=== PATIENT | male | born 1955 | race Caucasian/White ===

== ENCOUNTER → 2016-02-26 | Outpatient (REF) | payer BC ==
[2016-02-26 14:24] LABS: FERRITIN 290 NG/ML (26-388); PERCENT SATURATION 27.6 % (19.7-37.4); TOTAL IRON BINDING CAPACITY 387 UG/DL (250-450)
== END ==
LOC: M LAB REF 13:19
DX: R74.8 Abnormal levels of other serum enzymes (principal); F10.10 Alcohol abuse, uncomplicated

== ENCOUNTER → 2017-03-03 | Outpatient (REF) | payer BC ==
[2017-03-05 00:06] LABS: TESTOSTERONE FREE (DIRECT) 10.5 pg/mL (6.6-18.1)
== END ==
LOC: M LAB REF 12:05
DX: F52.21 Male erectile disorder (principal)
CPT/HCPCS: 84403

== ENCOUNTER → 2017-10-24 | Outpatient (CLI) | payer BC ==
[2017-10-24 12:37] LABS: ALBUMIN 4.2 GM/DL (3.2-5.2); ANION GAP 9 MEQ/L (8-16); BLOOD UREA NITROGEN 14 MG/DL (7-18); CALCIUM LEVEL 9.6 MG/DL (8.8-10.2); CARBON DIOXIDE LEVEL 26 MEQ/L (21-32); CHLORIDE LEVEL 106 MEQ/L (98-107); CREATININE FOR GFR 1.21 MG/DL (0.70-1.30); GLOMERULAR FILTRATION RATE > 60.0 (>49); GLUCOSE, FASTING 109 MG/DL (70-100); PHOSPHORUS LEVEL 3.2 MG/DL (2.5-4.9); POTASSIUM SERUM 4.3 MEQ/L (3.5-5.1); SODIUM LEVEL 141 MEQ/L (136-145); URIC ACID 7.6 MG/DL (3.5-7.2)
== END ==
LOC: M WUC 09:35
DX: M79.672 Pain in left foot (principal); M19.072 Primary osteoarthritis, left ankle and foot
CPT/HCPCS: 84550

== ENCOUNTER → 2018-03-05 | Outpatient (REF) | payer BC | LOC: M LAB REF 17:30 | PROVIDERS: ATTEND Nurse Practitioner Family | DX: E29.1 Testicular hypofunction (principal) ==

== ENCOUNTER → 2018-09-20 | Outpatient (REF) | payer BC ==
[~2018-09-20] MED LIST: LOSA50TA88; NAPR-837 PO
[2018-09-21 14:17] LABS: TESTOSTERONE FREE (DIRECT) 9.1 pg/mL (6.6-18.1)
== END ==
LOC: M LAB REF 12:36
PROVIDERS: ATTEND Nurse Practitioner Adult Health
DX: E29.1 Testicular hypofunction (principal)

== ENCOUNTER 2018-11-15 09:12 | Emergency (ER) | payer OTHER, BC ==
[~2018-11-15] VITALS: Ht 172.7 cm; Wt 99.9 kg
[2018-11-15] MEDS ORDERED: LOSA50TA88 (09:21)
[2018-11-15] MEDS ORDERED: ONDANSETRON 4 MG ORAL DISINTEGRATING TAB (Q0162 PER 1MG) PO ONE (10:00)
[2018-11-15] MEDS ORDERED: KETOROLAC 60 MG/2 ML VIAL (J1885) IM ONE (10:00)
--- NOTE | 2018-11-15 10:42 | REP ---
RIGHT SHOULDER, THREE VIEWS: Three views of the right shoulder performed. There is no acute fracture or dislocation. There is moderate narrowing, spurring, and subchondral sclerosis at the glenohumeral and acromioclavicular joints. There is an old healed fracture of the right 5th rib. IMPRESSION: Degenerative changes. No acute fracture or dislocation. Electronically Signed by Isaiah Viveros MD 11/16/2018 09:15 A
--- NOTE | 2018-11-15 10:52 | REP ---
RIGHT WRIST SERIES: Four views. HISTORY: Pain after fall. FINDINGS: Four views right wrist demonstrate moderate osteoarthritic spurring in the distal radioulnar joint. There are accessory ossicles at the volar aspect of the wrist just proximal to the pisiform and just distal to the ulnar styloid. There is also some spurring at the articulation between the triquetrum on the pisiform. Osteoarthritic changes of sclerosis and spur formation are noted in the navicular multangular articulation and to a lesser extent at the first carpometacarpal joint. There are mild degenerative changes at the first metacarpal phalangeal joint. IMPRESSION: Osteoarthritic changes. No acute bony abnormality. No fracture seen. Accessory ossicles. Electronically Signed by Osmel Bagley MD 11/15/2018 10:54 A
[2018-11-15 11:25] VITALS: BP 154/90
[2018-11-15] MEDS ORDERED: NAPR-837 PO (11:25)
== END 2018-11-15 11:32 | disposition home or self-care (01) ==
LOC: M ED 09:12
DX: S63.501A Unspecified sprain of right wrist, initial encounter (principal); S43.401A Unspecified sprain of right shoulder joint, initial encounter; S40.011A Contusion of right shoulder, initial encounter; S60.211A Contusion of right wrist, initial encounter; W10.9XXA Fall (on) (from) unspecified stairs and steps, initial encounter; Y92.89 Other specified places as the place of occurrence of the external cause; Y93.9 Activity, unspecified; Y99.0 Civilian activity done for income or pay; I10 Essential (primary) hypertension; M19.031 Primary osteoarthritis, right wrist; M25.711 Osteophyte, right shoulder; Z79.899 Other long term (current) drug therapy
CPT/HCPCS: 73030; 73110; 96372; 99284; J1885; Q0162

== ENCOUNTER → 2019-05-10 | Outpatient (CLI) | payer BC | LOC: M PLARAD 10:28 | PROVIDERS: ATTEND Nurse Practitioner Adult Health | DX: M54.5 Low back pain (principal) ==

== ENCOUNTER → 2019-06-20 | Outpatient (CLI) | payer BC | LOC: M RAD 10:36 | PROVIDERS: ATTEND Physician Assistant | DX: Z53.9 Procedure and treatment not carried out, unspecified reason (principal) ==

== ENCOUNTER → 2019-12-10 | Outpatient (REF) | payer OTHER, SELFPAY ==
[2019-12-12 14:13] LABS: HEPATITIS A ANTIBODY IGM NEGATIVE (NEGATIVE); HEPATITIS B CORE ANTIBODY IGM NEGATIVE (NEGATIVE); HEPATITIS B SURFACE ANTIGEN NEGATIVE (NEGATIVE)
== END ==
LOC: M LAB REF 12:28
PROVIDERS: ATTEND Internal Medicine
DX: Z11.59 Encounter for screening for other viral diseases (principal); R79.89 Other specified abnormal findings of blood chemistry

== ENCOUNTER → 2020-07-29 | Outpatient (REF) | payer MEDICARE, OTHER ==
[2020-07-29 18:12] LABS: HEMATOCRIT 51.5 % (42.0-52.0)
[2020-07-29 18:32] LABS: PERCENT SATURATION 47.2 % (19.7-50.0)
== END ==
LOC: M LAB REF 15:55
PROVIDERS: ATTEND Nurse Practitioner Adult Health
DX: R74.8 Abnormal levels of other serum enzymes (principal)